=== PATIENT | male | born 1975 | race Caucasian/White ===

== ENCOUNTER 2017-03-22 10:29 | Day surgery (SDC) | payer OTHER ==
[2017-03-22] VITALS (8 sets, daily range): BP systolic 97–114; BP diastolic 61–75; PULSE 42–53; RESP 16; O2SAT 96–99
[~2017-03-22] VITALS: Ht 182.9 cm; Wt 74.0 kg
[~2017-03-22 10:29] MED LIST: 0.9% Sodium Chloride 1,000 ML IV SCH; Sodium Chloride LOK Flush 10 mL Syringe IV PRN; fentaNYL-PF 50 mCg/mL 2 mL Inj IVPUSH PRN
[2017-03-22] MEDS ORDERED: No current meds (11:12)
--- NOTE | 2017-03-22 12:31 | PCM.ENDEGD ---
EGD Date of Service: Mar 22, 2017 Physician Ranjit Collier MD Pre Procedure Diagnosis: Reflux Post Procedure Dx & Findings: Esophagitis Procedure Esophagogastroduodenoscopy PROCEDURE IN DETAIL: After proper sedation, Olympus video endoscope was inserted into patient's mouth and esophagus was successfully intubated. Scope introduced esophagus. Esophagus showed normal shiny whitish mucosa consistent with squamous cell component. Z line was irritated and edematous with redness. Visualization was not ideal because patient was starting to struggle. Scope further advanced to the stomach. When we entered the stomach, patient started getting agitated and he started grabbing for the endoscope. Scope was withdrawn. Impression Esophagitis Recommendation Prilosec 20 mg once a day. Follow-up with Dr. Edwards to see if patient needs to repeat EGD With anesthesia. Presedation Assessment Risks and Benefits Informed consent was obtained from the patient after all risks and benefits including but not limited to drug reaction, infection, pain, bleeding, perforation, as well as alternatives were discussed. Patient monitoring Continuous pulse oximetry, cardiac monitoring, blood pressure monitoring, IV access, and oxygen at 2L per nasal cannula. Periprocedural Fentanyl: Fentanyl 200mcg Incrementally Midazolam: Midazolam 10mg Incrementally Diphenhydramine: Diphenhydramine 50 mg IV Complications There were no periprocedural complications identified. Post Procedure Plan Post Procedure Recommendations 1. Restrict activities today. 2. Resume normal activities in the morning. 3. Resume medications. 4. GERD behavioral modification: - Avoid fatty, acidic, spicy, large meals - Do not lie down after meals - Do not eat or drink anything for at least 2 1/2 hours before going to bed at night - Discontinue tobacco and alcohol - Decrease or avoid caffeine - Avoid chocolate and mints - Decrease weight - Avoid aspirin and non steroidal anti-inflammatory agents (NSAID) such as Aleve, Advil, Mobic, Naproxen, Ibuprofen, etc 5. Add proton pump inhibitor. Take 30 minutes before 1st meal of the day. 6. Patient informed of normal post procedure side effects as bloating, drowsiness, blood streaking in the stool 7. If gastric biopsy reveal H.pylori, continue with appropriate treatment 8. If small bowel biopsy reveals celiac, continue with appropriate treatment 9. Please don't hesitate to call me with any questions Ranjit Collier MD Mar 22, 2017 12:31
--- NOTE | 2017-03-22 12:33 | PCM.ENDCOL ---
Colonoscopy Date of Service: Mar 22, 2017 Physician Ranjit Collier MD Pre Procedure Diagnosis: Diarrhea Post Procedure Dx & Findings: hemorrhoids diverticuli Procedure Colonoscopy PROCEDURE IN DETAIL: Prep adequate After unremarkable rectal examination the Olympus video colonoscope was inserted patient's anal canal and was advanced to cecum. Landmarks were identified including the ileocecal valve and appendiceal orifice. Scope advanced to the terminal ileum. Terminal ileum showed a normal villous structures without ulcer mass erosion. Advanced 10 cm. Scope was withdrawn systematically. Visualized colonic mucosa showed healthy shiny mucosa with normal healthy-appearing vasculature. Patient had many small diverticuli mostly in the sigmoid colon, there are scattered all the way to the ascending colon. Random biopsies were obtained for diarrhea from the cecum to the rectum. In the rectum retroflexion was done which showed hemorrhoids. Anal canal was inspected carefully on the way out and hemorrhoids noted. Impression Normal terminal ileum Diverticuli Hemorrhoids Random biopsies obtained of the colon Recommendation Repeat colonoscopy when patient is 50 years. Diverticular diet Biopsies. Presedation Assessment Risks and Benefits Informed consent was obtained from the patient after all risks and benefits including but not limited to drug reaction, infection, pain, bleeding, perforation, as well as alternatives were discussed. Patient monitoring Continuous pulse oximetry, cardiac monitoring, blood pressure monitoring, IV access, and oxygen at 2L per nasal cannula. Complications There were no periprocedural complications identified. Post Procedure Plan Post Procedure Recommendations 1. Restrict activities today. 2. Resume normal activities in the morning. 3. Resume medications. 4. Patient informed of normal post procedure side effects as bloating, drowsiness, blood streaking in the stool. 5. average risk CRCS. If colon polyps come back as: -Hyperplastic- can repeat colonoscopy in 10 years -Tubular adenoma- repeat colonoscopy in 5 years -Tubulovillous/villous adenoma- repeat colonoscopy in 3 years -If any dysplasia- return to clinic as soon as possible 6. Please don't hesitate to call me with any questions. Ranjit Collier MD Mar 22, 2017 12:33
--- NOTE | 2017-03-24 13:23 | PATH ---
SURGICAL PATHOLOGY Attending Physician:Ranjit Collier M.D. CASE STATUS: Signed Out PATIENT NAME: JOSIAH SANTAMARIA PID: [id number] : 1975 DATE COLLECTED:03/22/2017 00:00 SPECIMEN: Colon, Biopsy CLINICAL HISTORY: 1. RANDOM COLON BX FINAL DIAGNOSIS: 1.RANDOM COLON BIOPSY: COLONIC MUCOSA WITH NO DIAGNOSTIC ALTERATIONS. Negative for inflammation, dysplasia and malignancy. ICD10 code R10.9 GROSS DESCRIPTION: The specimen is received in one formalin filled container labeled with the patient's name, sublabeled "random colon" and consists of multiple portions of tissue which aggregate to 0.4 x 0.4 x 0.3 CM. The specimen is entirely submitted in one cassette. 03/23/2017 [facility] MICRO DESCRIPTION: See diagnosis. ICD-9 CODES: CPT CODES: 1: 22436 Electronically Signed Out Angle Solomon MD [facility] Pathology [facility] [address], [place] [address] Technical component performed at [facility], [facility] [address], [place], [address]
== END 2017-03-22 23:59 | disposition home or self-care (01) ==
LOC: END 10:29
PROVIDERS: ATTEND Internal Medicine
DX: K57.30 Diverticulosis of large intestine without perforation or abscess without bleeding (principal); K64.9 Unspecified hemorrhoids; K21.9 Gastro-esophageal reflux disease without esophagitis; K20.9 Esophagitis, unspecified; R10.84 Generalized abdominal pain; F12.90 Cannabis use, unspecified, uncomplicated; M51.16 Intervertebral disc disorders with radiculopathy, lumbar region; G89.29 Other chronic pain
CPT/HCPCS: 43235; 45380; 88305; 99153; G0500; J1200; J2250; J3010; J7030

== ENCOUNTER 2017-05-30 13:03 | Emergency (ER) | payer SELFPAY ==
[~2017-05-30] VITALS: Ht 182.9 cm; Wt 72.7 kg
[~2017-05-30 13:03] MED LIST changes: -0.9% Sodium Chloride 1,000 ML IV SCH; +No current meds; -Sodium Chloride LOK Flush 10 mL Syringe IV PRN; -fentaNYL-PF 50 mCg/mL 2 mL Inj IVPUSH PRN
[2017-05-30 13:08] VITALS: BP 139/93; PULSE 42; RESP 16; O2SAT 100
--- NOTE | 2017-05-30 13:12 | ED.REPORT ---
HPI-Abd Pain M 40 and Over Date of Service May 30, 2017 ED Provider: The patient is a 42 year old male with history of chronic abdominal and back pain, who presents to the emergency department complaining of severe abdominal pain that began 3 days ago. The pain is located diffusely to his abdomen. He describes the pain as if something is eating him from inside out. He has had similar symptoms multiple times in the past with numerous workups that include an endoscopy, colonoscopy, and a pill cam. He has episodes every few months. He was seen at [facility] on Tuesday for the same. H states he was there for 7 hours and was discharged home in the same condition he arrived with a prescription for Zofran. The patient uses marijuana regularly. Nursing Notes Stated Complaint: EXTREME ABD PAIN Chief Complaint: Male Abdominal Pain Nursing Notes Reviewed: Yes Allergies: Coded Allergies: No Known Allergies (Verified Allergy, Unknown, 05/30/17) Miscellaneous Medications ([No current meds]) General Time Seen by MD: 13:12 Chief Complaint Abdominal pain Hx Obtained From: Patient, Other family... Arrived By: Wheelchair Sudden in Onset?: Yes Onset Occurred: 3 days ago Symptom Duration: Since onset Progression since Onset: Constant, Gradually worsening Location: : Diffuse Quality: Painful Severity: Current: Severe Severity: Maximum: Severe Recent Healthcare: No recent hospitalization, Recent doctor visit, Prior workup Similar Sx Previous: Yes Past Medical History Past Medical History Bowel obstruction per patient Chronic abdominal pain Umbilical hernia Chronic back pain Past Surgical History Umbilical hernia repair Family History non-contributory Smoking History Current Every Day Smoker Social History Previous meth use, 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 Physical Exam Initial Vital Signs Vital Signs (First) Date Time Temp Pulse Resp B/P Pulse Ox O2 Delivery O2 Flow Rate FiO2 05/30/17 13:08 36.8 42 16 139/93 100 05/30/17 14:10 Room Air Initial VS: Reviewed Head / Eyes: Atraumatic, Normocephalic, PERRL ENT: Mucous membranes moist, Conjunctiva normal, No scleral icterus Neck: Supple, Non-tender, Full range of motion Lymphatic: No lymphadenopathy Extremities: Vascular intact, Neuro intact, No swelling, No tenderness Skin: Warm, Dry, No cyanosis Neurologic: Alert, Oriented, Nonfocal Psychiatric: Mood/affect normal, Behavior normal, Normal thought content General/Constitutional: Awake, Alert, Cooperative Distress / Hydration: Positive: Distress moderate Respiratory / Chest: Atraumatic, Breath sounds NL, Breath sounds = bilat, No respiratory distress, No rales, No rhonchi, No wheezing Cardiovascular: Heart rate NL, Regular rhythm, Heart sounds NL, No gallop, No murmurs, No rubs, Peripheral circulation NL Abdomen: Soft, No guarding, No rebound, BS normoactive, No distention, No hernia, No palpable mass, No pulsatile mass Tenderness/Guarding/Rebound: Positive: Tender diffuse Back: Inspection NL, Non-tender, No CVA tenderness Interpretation & Diagnostics Lab Results Interpretation Test 05/30/17 13:30 05/30/17 13:53 Hold Purple Top Tube Received (Received) Hold Blue Top Tube Received (Received) Hold [place] Top Tube Received (Received) Hold [place] Top Tube Received (Received) Re-Eval/Medical Decision Source of Hx: Old records, Family Time of Eval: 14:17 Re-Evaluation/Progress Note: Rechecked the patient. When I enter the room he is sleeping comfortably. When I say his name he wakens and says he is no better but he appears better. Time of Eval: 16:31 Re-Evaluation/Progress Note: Rechecked the patient. He is feeling better. Discussed plan for discharge home. All questions were addressed. Consultation : Consulted With: plant care worker Call Returned at: 14:40 Note: Discussed the patient's case with the ED social worker clinical. He will see and evaluate the patient. Counseled Regarding: Diagnosis, Lab results, Need for follow-up, When/why to return to ED Discharge & Departure Primary Impression: Generalized abdominal pain Disposition: Home Vital Signs - All Vital Signs Date Time Temp Pulse Resp B/P Pulse Ox O2 Delivery O2 Flow Rate FiO2 05/30/17 15:40 43 23 124/60 100 05/30/17 14:10 39 17 141/73 100 Room Air 05/30/17 13:08 36.8 42 16 139/93 100 )( All Prior VS Reviewed: Yes Condition: Stable Patient Instructions: Acute Abdominal Pain (ED) Additional Instructions: Thank you for entrusting us with your care today. Your lab results today are reassuring. I believe that it is safe for you to go home. Use the medications as prescribed. Reglan (metoclopramide) every 4 hours as needed for nausea and abdominal cramps. If this is insufficient, try haloperidol 5 mg twice a day. If this is insufficient try lorazepam 2 mg twice a day. I also recommend that you stop using marijuana for at least 6 months to see if you may be suffering from the condition known as cannabis hyperemesis syndrome. Followup with your regular doctor in the next few days for further management. Return to the emergency department for any new or concerning symptoms. Referrals: Rod Michel MD Attestation Portions of this note were transcribed by Zuly Luis. I, Dr. Mendez personally performed the history, physical exam and medical decision-making; I reviewed and confirmed the accuracy of the information in the transcribed note. Signed by: Ford Jha, 05/30/2017 at 1645. copies to: Rod Michel MD, Kirk H MD May 30, 2017 13:12 Zuly Luis May 30, 2017 13:17
[2017-05-30] MEDS ORDERED: 0.9% Sodium Chloride 1,000 ML IV ONE (13:16)
[2017-05-30] MEDS ORDERED: Acetaminophen IV 1,000 MG in IV Premix 1 EACH IV ONE (13:20)
[2017-05-30] MEDS ORDERED: MetoCLOpramide 5 mg/mL 2 mL Inj IVPUSH ONE (13:20)
[2017-05-30] MEDS ORDERED: Dexamethasone 10 mg/mL Inj IVPUSH ONE (13:20)
[2017-05-30] MEDS ORDERED: Ondansetron 2 mg/mL 2 mL Inj IVPUSH ONE (13:20)
[2017-05-30] MEDS ORDERED: Haloperidol 5 mg/mL Inj IVPUSH ONE (13:20)
[2017-05-30 14:10] VITALS: BP 141/73; PULSE 39; RESP 17; O2SAT 100
[2017-05-30 15:40] VITALS: BP 124/60; PULSE 43; RESP 23; O2SAT 100
[2017-05-30] MEDS ORDERED: METO-301 PO (16:40)
[2017-05-30] MEDS ORDERED: LORA2TAB PO (16:40)
[2017-05-30] MEDS ORDERED: HAL5 PO (16:40)
[2017-05-30 17:20] VITALS: BP 132/66; PULSE 42; RESP 18; O2SAT 99
== END 2017-05-30 17:18 | disposition home or self-care (01) ==
LOC: SED 13:03
DX: R10.84 Generalized abdominal pain (principal); F17.200 Nicotine dependence, unspecified, uncomplicated; Z98.890 Other specified postprocedural states
CPT/HCPCS: 96361; 96374; 96375; 99285; J0131; J1100; J1200; J1630; J1885; J2060; J2405; J2765; J7030